=== PATIENT | female | born 1965 | race Caucasian/White ===

== ENCOUNTER 2016-09-30 10:52 | Emergency (ER) | payer OTHER ==
--- NOTE | 2016-09-30 11:37 | REP ---
Clinical: Trauma. Technique: AP, lateral, bilateral oblique and sunrise views right knee. Findings: The osseous structures and joint spaces are intact and normal. There is no evidence for acute fracture or dislocation. No joint effusion is appreciated. Surrounding soft tissues are unremarkable. No subcutaneous emphysema or radiodense foreign body. Impression: Normal examination. No acute fracture or dislocation. Signed by Duke Knox MD 09/30/2016 11:28 A
--- NOTE | 2016-09-30 11:56 | EDDOCDS ---
Nurse's Notes [facility] Name: Carol Bowman Age: 51 yrs Sex: Female : 1965 Arrival Date: 09/30/2016 Time: 10:52 Bed PR1 / Private MD: Kaci Herring Diagnosis: Pain in right knee Presentation: 09/30 10:59 Presenting complaint: Patient states: fell last night and injured right knee. Adult dsf Sepsis Screening: The patient does not have new or worsening altered mentation. Patient's respiratory rate is less than 22. Systolic blood pressure is greater than 100. Patient has a qSOFA score of 0- Negative Sepsis Screen. Suicide/Homicide risk assessment- the patient denies having any suicidal and/or homicidal ideations and does not present with any other emotional, behavioral or mental health complaints. 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 Transition of care: patient was not received from another setting of care. 10:59 Acuity: ELIANE Level 4 dsf 10:59 Method Of Arrival: Wheelchair dsf Triage Assessment: 11:01 General: Appears in no apparent distress, Behavior is appropriate for age, cooperative. dsf Pain: Location: right knee Pain currently is 5 out of 10 on a pain scale. Quality of pain is described as throbbing. HIV screening NA for this visit Offered previously. Musculoskeletal: Reports pain in right knee. 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 Multiple Vitamins oral tab 1 tab daily (Last dose: 09/29/2016) 2. oxycodone-acetaminophen 5-325 mg Oral tab 2 tabs as needed husbands medication (Last dose: 09/30/2016 04:30) - PMHx: Diverticulitis; chrons; - PSHx: ; Appendectomy; Hysterectomy; - Social history: Smoking status: Patient states was never smoker of tobacco. No barriers to communication noted, The patient speaks fluent Welsh, Speaks appropriately for age. - Family history: Not pertinent. - : The pt / caregiver states he / she is not on anticoagulants. Home medication list is obtained from the patient. - Exposure Risk Screening:: None identified. Screenin:54 Screening information is obtained from the patient. Fall risk: No risks identified. srm Assistance ADL's: requires no assistance with activities of daily living. Abuse/DV Screen: The patient / caregiver reports he/she is: not in a situation that causes fear, pain or injury. Nutritional screening: No deficits noted. Advance Directives: There is no active DNR order. home support is adequate. Assessment: 11:54 General: Appears in no apparent distress, Behavior is appropriate for age, cooperative. srm Respiratory: No deficits noted. Musculoskeletal: Circulation, motion, and sensation intact Reports RIGHT KNEE PAIN. Vital Signs: 10:55 BP 105 / 58; Pulse 82; Resp 16; Temp 96.5(T); Pulse Ox 100% on R/A; Weight 64.86 kg lr2 (R); Height 5 ft. 3 in. (160.02 cm) (R); Pain 5/10; 10:55 Body Mass Index 25.33 (64.86 kg, 160.02 cm) lr2 Vitals: 10:55 Log In Time: September 30, 2016 at 10:52. lr2 ED Course: 10:54 Patient visited by Kaci Yoon. lr2 10:54 Kaci Herring DO is Private Physician. lr2 10:54 Patient moved to Waiting lr2 10:58 Patient moved to Pre RCE lr2 10:59 Triage Initiated dsf 11:03 Patient moved to Triage 1 dsf 11:06 Ghassan Conn PA is PHCP. btw 11:06 Elana Marshall MD is Attending Physician. btw 11:06 Patient visited by Ghassan Conn PA. btw 11:14 Patient name changed from Carol\S\J\S\Colby\S\ to Carol\S\Wilbert\S\Colby. EDMS 11:15 [facility] Payment Agreement was scanned into [employer] and attached to record. lg 11:18 Patient moved to TR1 srm 11:41 Patient moved to PR1 / 25 kr3 11:44 Orthopaedics, [facility] is Referral Physician. btw 11:46 Knee, Complete Returned. EDMS 11:52 Crutch training done. Knee immobilizer applied on right knee. ct3 11:53 Patient visited by Lynn Palomares PCA. ct3 11:54 The patient / caregiver is instructed regarding the plan of care and ED course. srm Accompanied by Significant Other, Patient has correct armband on for positive identification. 11:54 No IV's were initiated during this patient's visit. No IV's were initiated during this srm patient's visit. No procedures done that require assistance. Crutch training done. Knee immobilizer applied on right knee. Patient with positive distal sensation and brisk distal capillary refill after application. Order Results: Radiology Order: Knee, Complete Test: Knee, Complete REASON FOR EXAMINATION: Trauma; Clinical: Trauma.; ; Technique: AP, lateral, bilateral oblique and sunrise views right knee.; ; Findings: The osseous structures and joint spaces are intact and normal. There; is no evidence for acute fracture or dislocation. No joint effusion is; appreciated. Surrounding soft tissues are unremarkable. No subcutaneous; emphysema or radiodense foreign body.; ; Impression:; Normal examination. No acute fracture or dislocation.; ; ; Signed by; Duke Knox MD 09/30/2016 11:28 A; Outcome: 11:44 Discharge ordered by Provider. btw 11:54 Discharge Assessment: Patient awake, alert and oriented x 3. No cognitive and/or srm functional deficits noted. Patient verbalized understanding of disposition instructions. patient administered narcotics - no. The following High Risk Discharge criteria are identified: None. Discharged to home with crutches, with significant other. Condition: stable. Discharge instructions given to patient, Instructed on discharge instructions, follow up and referral plans. medication usage, Rest, Ice, Compression and Elevation. crutch walking, Demonstrated understanding of instructions, crutch walking, Pt was receptive of discharge instructions/ teaching. No special radiology studies were completed. Property :Personal belongings accompany Pt. 11:55 Patient left the ED. [facility] Signatures: Dispatcher [employer] EDMS Racquel Saavedra, RN Flavia Dexter, Reg Reg lg Kristie Oneill,KOJO RN [email or web address] Ghassan Conn PA PA btw Lynn Palomares, LAURI PROGRAM TRAINER ct3 Alivia Mendez RN RN dsf Ross, Laura lr2 MTDD
--- NOTE | 2016-09-30 11:56 | EDDOCDS ---
Physician Documentation [facility] Name: Carol Bowman Age: 51 yrs Sex: Female : 1965 Arrival Date: 09/30/2016 Time: 10:52 Bed PR Private MD: Kaci Herring Disposition: 09/30/16 11:44 Discharged to Home/Self Care. Impression: Pain in right knee. - Condition is Stable. - Discharge Instructions: Knee Pain, Knee Sprain, [id number]. - Medication Reconciliation, Local Pharmacy Hours form. - Follow up: Orthopaedics, [facility]; When: Call to arrange an appointment; Reason: Further diagnostic work-up, Recheck today's complaints, Continuance of care. - Problem is new. - Symptoms are unchanged. Historical: - Allergies: no known allergies; - Home Meds: 1. Multiple Vitamins oral tab 1 tab daily (Last dose: 09/29/2016) 2. oxycodone-acetaminophen 5-325 mg Oral tab 2 tabs as needed husbands medication (Last dose: 09/30/2016 04:30) - PMHx: Diverticulitis; chrons; - PSHx: ; Appendectomy; Hysterectomy; - Social history: Smoking status: Patient states was never smoker of tobacco. No barriers to communication noted, The patient speaks fluent Lithuanian, Speaks appropriately for age. - Family history: Not pertinent. - : The pt / caregiver states he / she is not on anticoagulants. Home medication list is obtained from the patient. - Exposure Risk Screening:: None identified. 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 3 in. (160.02 cm) (R); Pain 5/10; 10:55 Body Mass Index 25.33 (64.86 kg, 160.02 cm) lr2 MDM: 11:11 Financial registration complete. lg 11:15 [facility] Payment Agreement was scanned into [employer] and attached to record. lg 11:17 Knee, Complete Ordered. EDMS 11:40 Knee Immobilizer ordered. btw 11:40 Crutches ordered. btw Signatures: Dispatcher [employer] Racquel Gibson, RN RN Flavia Ambrocio, Diego Reg lg Ghassan Conn PA PA btw Alivia Mendez RN RN dsf The chart was reviewed and I authenticate all verbal orders and agree with the evaluation and treatment provided.Attachments: 11:15 [facility] Payment Agreement lg MTDD
--- NOTE | 2016-10-02 12:56 | EDDOCDS ---
Physician Documentation [facility] Name: Carol Bowman Age: 51 yrs Sex: Female : 1965 Arrival Date: 09/30/2016 Time: 10:52 Bed PR Private MD: Kaci Herring Disposition: 09/30/16 11:44 Discharged to Home/Self Care. Impression: Pain in right knee. - Condition is Stable. - Discharge Instructions: Knee Pain, Knee Sprain, [id number]. - Medication Reconciliation, Local Pharmacy Hours form. - Follow up: Orthopaedics, [facility]; When: Call to arrange an appointment; Reason: Further diagnostic work-up, Recheck today's complaints, Continuance of care. - Problem is new. - Symptoms are unchanged. Historical: - Allergies: no known allergies; - Home Meds: 1. Multiple Vitamins oral tab 1 tab daily (Last dose: 09/29/2016) 2. oxycodone-acetaminophen 5-325 mg Oral tab 2 tabs as needed husbands medication (Last dose: 09/30/2016 04:30) - PMHx: Diverticulitis; chrons; - PSHx: ; Appendectomy; Hysterectomy; - Social history: Smoking status: Patient states was never smoker of tobacco. No barriers to communication noted, The patient speaks fluent Irish, Speaks appropriately for age. - Family history: Not pertinent. - : The pt / caregiver states he / she is not on anticoagulants. Home medication list is obtained from the patient. - Exposure Risk Screening:: None identified. 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 3 in. (160.02 cm) (R); Pain 5/10; 10:55 Body Mass Index 25.33 (64.86 kg, 160.02 cm) lr2 MDM: 11:11 Financial registration complete. lg 11:15 [facility] Payment Agreement was scanned into [employer] and attached to record. lg 11:17 Knee, Complete Ordered. EDMS 11:40 Knee Immobilizer ordered. btw 11:40 Crutches ordered. btw 14:39 T-Sheet-- Draft Copy was scanned into [employer] and attached to record. gb Signatures: Dispatcher [employer] Racquel Gibson, RN RN srm TorstenVeronica, Reg Reg gb Flavia Garcia, Reg Reg lg Ghassan Conn PA PA btw Alivia Mendez RN RN dsf The chart was reviewed and I authenticate all verbal orders and agree with the evaluation and treatment provided.Attachments: 11:15 [facility] Payment Agreement lg 14:39 T-Sheet-- Draft Copy gb Chart Complete MTDD
--- NOTE | 2016-10-02 12:56 | EDDOCDS ---
Nurse's Notes [facility] Name: Carol Bowman Age: 51 yrs Sex: Female : 1965 Arrival Date: 09/30/2016 Time: 10:52 Bed PR1 / Private MD: Kaci Herring Diagnosis: Pain in right knee Presentation: 09/30 10:59 Presenting complaint: Patient states: fell last night and injured right knee. Adult dsf Sepsis Screening: The patient does not have new or worsening altered mentation. Patient's respiratory rate is less than 22. Systolic blood pressure is greater than 100. Patient has a qSOFA score of 0- Negative Sepsis Screen. Suicide/Homicide risk assessment- the patient denies having any suicidal and/or homicidal ideations and does not present with any other emotional, behavioral or mental health complaints. 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 Transition of care: patient was not received from another setting of care. 10:59 Acuity: ELIANE Level 4 dsf 10:59 Method Of Arrival: Wheelchair dsf Triage Assessment: 11:01 General: Appears in no apparent distress, Behavior is appropriate for age, cooperative. dsf Pain: Location: right knee Pain currently is 5 out of 10 on a pain scale. Quality of pain is described as throbbing. HIV screening NA for this visit Offered previously. Musculoskeletal: Reports pain in right knee. 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 Multiple Vitamins oral tab 1 tab daily (Last dose: 09/29/2016) 2. oxycodone-acetaminophen 5-325 mg Oral tab 2 tabs as needed husbands medication (Last dose: 09/30/2016 04:30) - PMHx: Diverticulitis; chrons; - PSHx: ; Appendectomy; Hysterectomy; - Social history: Smoking status: Patient states was never smoker of tobacco. No barriers to communication noted, The patient speaks fluent Georgian, Speaks appropriately for age. - Family history: Not pertinent. - : The pt / caregiver states he / she is not on anticoagulants. Home medication list is obtained from the patient. - Exposure Risk Screening:: None identified. Screenin:54 Screening information is obtained from the patient. Fall risk: No risks identified. srm Assistance ADL's: requires no assistance with activities of daily living. Abuse/DV Screen: The patient / caregiver reports he/she is: not in a situation that causes fear, pain or injury. Nutritional screening: No deficits noted. Advance Directives: There is no active DNR order. home support is adequate. Assessment: 11:54 General: Appears in no apparent distress, Behavior is appropriate for age, cooperative. srm Respiratory: No deficits noted. Musculoskeletal: Circulation, motion, and sensation intact Reports RIGHT KNEE PAIN. Vital Signs: 10:55 BP 105 / 58; Pulse 82; Resp 16; Temp 96.5(T); Pulse Ox 100% on R/A; Weight 64.86 kg lr2 (R); Height 5 ft. 3 in. (160.02 cm) (R); Pain 5/10; 10:55 Body Mass Index 25.33 (64.86 kg, 160.02 cm) lr2 Vitals: 10:55 Log In Time: September 30, 2016 at 10:52. lr2 ED Course: 10:54 Patient visited by Kaci Yoon. lr2 10:54 Kaci Herring DO is Private Physician. lr2 10:54 Patient moved to Waiting lr2 10:58 Patient moved to Pre RCE lr2 10:59 Triage Initiated dsf 11:03 Patient moved to Triage 1 dsf 11:06 Ghassan Conn PA is PHCP. btw 11:06 Elana Marshall MD is Attending Physician. btw 11:06 Patient visited by Ghassan Conn PA. btw 11:14 Patient name changed from Carol\S\J\S\Colby\S\ to Carol\S\Wilbert\S\Colby. EDMS 11:15 [facility] Payment Agreement was scanned into [employer] and attached to record. lg 11:18 Patient moved to TR1 srm 11:41 Patient moved to PR1 / 25 kr3 11:44 Orthopaedics, [facility] is Referral Physician. btw 11:46 Knee, Complete Returned. EDMS 11:52 Crutch training done. Knee immobilizer applied on right knee. ct3 11:53 Patient visited by Lynn Palomares PCA. ct3 11:54 The patient / caregiver is instructed regarding the plan of care and ED course. srm Accompanied by Significant Other, Patient has correct armband on for positive identification. 11:54 No IV's were initiated during this patient's visit. No IV's were initiated during this srm patient's visit. No procedures done that require assistance. Crutch training done. Knee immobilizer applied on right knee. Patient with positive distal sensation and brisk distal capillary refill after application. 14:39 T-Sheet-- Draft Copy was scanned into [employer] and attached to record. Order Results: Radiology Order: Knee, Complete Test: Knee, Complete REASON FOR EXAMINATION: Trauma; Clinical: Trauma.; ; Technique: AP, lateral, bilateral oblique and sunrise views right knee.; ; Findings: The osseous structures and joint spaces are intact and normal. There; is no evidence for acute fracture or dislocation. No joint effusion is; appreciated. Surrounding soft tissues are unremarkable. No subcutaneous; emphysema or radiodense foreign body.; ; Impression:; Normal examination. No acute fracture or dislocation.; ; ; Signed by; Duke Knox MD 09/30/2016 11:28 A; Outcome: 11:44 Discharge ordered by Provider. btw 11:54 Discharge Assessment: Patient awake, alert and oriented x 3. No cognitive and/or srm functional deficits noted. Patient verbalized understanding of disposition instructions. patient administered narcotics - no. The following High Risk Discharge criteria are identified: None. Discharged to home with crutches, with significant other. Condition: stable. Discharge instructions given to patient, Instructed on discharge instructions, follow up and referral plans. medication usage, Rest, Ice, Compression and Elevation. crutch walking, Demonstrated understanding of instructions, crutch walking, Pt was receptive of discharge instructions/ teaching. No special radiology studies were completed. Property :Personal belongings accompany Pt. 11:55 Patient left the ED. [facility] Signatures: Dispatcher [employer] EDMS Racquel Saavedra, RN RN [facility] Veronica Sarmiento, Reg Reg gb Flavia Garcia, Reg Reg lg Kristie Oneill,RN RN kr3 Ghassan Conn PA PA btw Lynn Palomares, MILL RECORDER MILL RECORDER ct3 Alivia Mendez RN RN dsf Ross, Laura lr2 Chart Complete MTDD
--- NOTE | 2016-10-02 12:56 | EDDOCDS ---
Physician Documentation [facility] Name: Carol Bowman Age: 51 yrs Sex: Female : 1965 Arrival Date: 09/30/2016 Time: 10:52 Bed PR Private MD: Kaci Herring Disposition: 09/30/16 11:44 Discharged to Home/Self Care. Impression: Pain in right knee. - Condition is Stable. - Discharge Instructions: Knee Pain, Knee Sprain, [id number]. - Medication Reconciliation, Local Pharmacy Hours form. - Follow up: Orthopaedics, [facility]; When: Call to arrange an appointment; Reason: Further diagnostic work-up, Recheck today's complaints, Continuance of care. - Problem is new. - Symptoms are unchanged. Historical: - Allergies: no known allergies; - Home Meds: 1. Multiple Vitamins oral tab 1 tab daily (Last dose: 09/29/2016) 2. oxycodone-acetaminophen 5-325 mg Oral tab 2 tabs as needed husbands medication (Last dose: 09/30/2016 04:30) - PMHx: Diverticulitis; chrons; - PSHx: ; Appendectomy; Hysterectomy; - Social history: Smoking status: Patient states was never smoker of tobacco. No barriers to communication noted, The patient speaks fluent Welsh, Speaks appropriately for age. - Family history: Not pertinent. - : The pt / caregiver states he / she is not on anticoagulants. Home medication list is obtained from the patient. - Exposure Risk Screening:: None identified. 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 3 in. (160.02 cm) (R); Pain 5/10; 10:55 Body Mass Index 25.33 (64.86 kg, 160.02 cm) lr2 MDM: 11:11 Financial registration complete. lg 11:15 [facility] Payment Agreement was scanned into [employer] and attached to record. lg 11:17 Knee, Complete Ordered. EDMS 11:40 Knee Immobilizer ordered. btw 11:40 Crutches ordered. btw 14:39 T-Sheet-- Draft Copy was scanned into [employer] and attached to record. gb Signatures: Dispatcher [employer] Racquel Gibson, RN RN srm TorstenVeronica, Reg Reg gb Flavia Garcia, Reg Reg lg Ghassan Conn PA PA btw Alivia Mendez RN RN dsf The chart was reviewed and I authenticate all verbal orders and agree with the evaluation and treatment provided.Attachments: 11:15 [facility] Payment Agreement lg 14:39 T-Sheet-- Draft Copy gb Chart Complete MTDD
== END 2016-09-30 11:55 | disposition home or self-care (01) ==
LOC: M ED 10:52
DX: S83.411A Sprain of medial collateral ligament of right knee, initial encounter (principal); W01.0XXA Fall on same level from slipping, tripping and stumbling without subsequent striking against object, initial encounter; Y92.018 Other place in single-family (private) house as the place of occurrence of the external cause; Y93.89 Activity, other specified; Y99.8 Other external cause status; K50.90 Crohn's disease, unspecified, without complications; Z87.19 Personal history of other diseases of the digestive system

== ENCOUNTER 2018-03-25 12:04 | Outpatient (RCR) | payer OTHER | END 2018-04-12 | LOC: M PT 12:04 | DX: Z51.89 Encounter for other specified aftercare (principal); R42 Dizziness and giddiness | CPT/HCPCS: 97010 ==

== ENCOUNTER 2018-04-18 14:27 | Outpatient (RCR) | payer OTHER | END 2018-05-12 | LOC: M PT 14:27 | DX: R42 Dizziness and giddiness (principal) | CPT/HCPCS: 97110 ==

== ENCOUNTER → 2018-04-22 | Outpatient (REF) | payer OTHER ==
[2018-04-22 12:56] LABS: VITAMIN B12 LEVEL 712 PG/ML (247-911)
[2018-04-24 00:07] LABS: Lyme Disease IgG/IgM Antibodie <0.91 ISR (0.00-0.90); Lyme Disease IgM Ab Quantitati <0.80 index (0.00-0.79)
== END ==
LOC: M LAB REF 12:22
DX: K50.90 Crohn's disease, unspecified, without complications (principal); M25.50 Pain in unspecified joint; R26.81 Unsteadiness on feet

== ENCOUNTER → 2018-07-18 | Outpatient (REF) | payer OTHER ==
[2018-07-18 12:47] LABS: C REACTIVE PROTEIN QUANTITATIV < 0.30 MG/DL (0.00-0.30); CPK CREATINE PHOSPHOKINASE 280 U/L (26-192); MB/CK RELATIVE INDEX 0.43 (< OR =4); TROPONIN I < 0.02 NG/ML (< 0.10)
== END ==
LOC: M LAB REF 11:47
DX: R94.31 Abnormal electrocardiogram [ECG] [EKG] (principal)

== ENCOUNTER → 2019-01-17 | Outpatient (REF) | payer OTHER ==
[2019-01-23 14:10] LABS: ADH PANEL OSMOLALITY 282 mOsmol/kg (275-295); ALDOSTERONE 5.2 ng/dL (0.0-30.0); ANTI-DIURETIC HORMONE <0.8 pg/mL (0.0-4.7)
== END ==
LOC: M LAB REF 12:52
PROVIDERS: ATTEND Internal Medicine
DX: I95.1 Orthostatic hypotension (principal)

== ENCOUNTER → 2020-07-22 | Outpatient (CLI) | payer SELFPAY | LOC: M LABSMTC 11:47 | PROVIDERS: ATTEND Pediatrics | DX: Z20.828 Contact with and (suspected) exposure to other viral communicable diseases (principal) ==

== ENCOUNTER → 2020-12-13 | Outpatient (CLI) | payer SELFPAY | LOC: M LABSMTC 10:00 | PROVIDERS: ATTEND Pediatrics | DX: Z20.822 Contact with and (suspected) exposure to COVID-19 (principal) ==

== ENCOUNTER → 2020-12-17 | Outpatient (CLI) | payer SELFPAY | LOC: M LABSMTC 10:19 | PROVIDERS: ATTEND Pediatrics | DX: Z11.52 Encounter for screening for COVID-19 (principal) ==

== ENCOUNTER → 2020-12-21 | Outpatient (CLI) | payer OTHER ==
[2020-12-21 09:11] LABS: HEMATOCRIT 46.1 % (36.0-47.0); HEMOGLOBIN 15.2 g/dl (12.0-15.5); MEAN CORPUSCULAR HEMOGLOBIN 29.2 pg (27.0-33.0); MEAN CORPUSCULAR VOLUME 88.7 fl (80.0-96.0); PLATELET COUNT, AUTOMATED 175 10^3/uL (150-450)
[2020-12-21 09:32] LABS: ERYTHROCYTE SEDIMENTATION RATE 27 mm/hr (0-30)
[2020-12-21 09:36] LABS: ALBUMIN 3.8 GM/DL (3.2-5.2); ALT/SGPT 23 U/L (12-78); BILIRUBIN,TOTAL 0.3 MG/DL (0.2-1.0); BLOOD UREA NITROGEN 10 MG/DL (7-18); C REACTIVE PROTEIN QUANTITATIV 1.19 MG/DL (0.00-0.30); CALCIUM LEVEL 8.7 MG/DL (8.5-10.1); CARBON DIOXIDE LEVEL 28 MEQ/L (21-32); CHLORIDE LEVEL 106 MEQ/L (98-107); CREATININE FOR GFR 0.74 MG/DL (0.55-1.30); GLOMERULAR FILTRATION RATE > 60.0 (>51); GLUCOSE, FASTING 89 MG/DL (70-100); POTASSIUM SERUM 4.3 MEQ/L (3.5-5.1); SODIUM LEVEL 140 MEQ/L (136-145); TOTAL PROTEIN 6.9 GM/DL (6.4-8.2)
== END ==
LOC: M LAB 08:24
PROVIDERS: ATTEND Internal Medicine Gastroenterology
DX: K50.90 Crohn's disease, unspecified, without complications (principal); R19.7 Diarrhea, unspecified; R10.32 Left lower quadrant pain

== ENCOUNTER → 2021-01-03 | Outpatient (CLI) | payer OTHER ==
[~2021-01-03] MED LIST: GLUCAGON INJ 1MG VIAL As Ordered ONE; ISOVUE-370 76% 100ML VIAL As Ordered ONE; VoLumen 0.1% SUSPENSION 450ML BOTTLE As Ordered ONE
--- NOTE | 2021-01-03 11:26 | REPVR ---
PROCEDURE INFORMATION: Exam: CT Abdomen And Pelvis Without And With Contrast Exam date and time: 01/03/2021 10:23 AM Age: 55 years old Clinical indication: Condition or disease; Other: Crohn's TECHNIQUE: Imaging protocol: Computed tomography of the abdomen and pelvis without and with contrast. 3D rendering (Not supervised by radiologist): MIP and/or 3D reconstructed images were created by the technologist. Radiation optimization: All CT scans at this facility use at least one of these dose optimization techniques: automated exposure control; mA and/or kV adjustment per patient size (includes targeted exams where dose is matched to clinical indication); or iterative reconstruction. Contrast material: ISOVUE 370; Contrast volume: 100 ml; Contrast route: INTRAVENOUS (IV); Other contrast: Oral, VOLUMEN, 450ML x 3; COMPARISON: No relevant prior studies available. FINDINGS: Lungs: Increased interstitial markings with small ground-glass airspace opacities in the visualized lungs may represent COVID-19 infection versus edema or multifocal pneumonia, clinical correlation is recommended. Liver: Liver is enlarged small area of focal fatty infiltration at the falciform ligament within the liver. Gallbladder and bile ducts: Normal. No calcified stones. No ductal dilation. Pancreas: Normal. No ductal dilation. Spleen: Normal. No splenomegaly. Adrenal glands: Normal. No mass. Kidneys and ureters: Normal. No hydronephrosis. Stomach and bowel: No small bowel dilatation or obstruction. Fluid in the colon and small bowel loops without any dilatation or surrounding inflammation, nonspecific, mild enterocolitis should be ruled out clinically. Appendix: Appendix is not definitely seen. No secondary signs to suggest acute appendicitis. Intraperitoneal space: Unremarkable. No free air. No significant fluid collection. Vasculature: Unremarkable. No abdominal aortic aneurysm. Lymph nodes: Multiple subcentimeter retroperitoneal and mesenteric root lymph nodes, these are not pathologically enlarged by CT criteria. Urinary bladder: Unremarkable as visualized. Reproductive: Status post hysterectomy. Bones/joints: Mild levoscoliosis of the distal lumbar spine and dextroscoliosis of the thoracolumbar spine. Soft tissues: Unremarkable. IMPRESSION: Increased interstitial markings with small ground-glass airspace opacities in the visualized lungs may represent COVID-19 infection versus edema or multifocal pneumonia, clinical correlation is recommended. No small bowel dilatation or obstruction. Fluid in the colon and small bowel loops without any dilatation or surrounding inflammation, nonspecific, mild enterocolitis should be ruled out clinically. Electronically signed by: Letha Torres On 01/03/2021 11:25:44 AM
== END ==
LOC: M RAD 08:57
PROVIDERS: ATTEND Internal Medicine Gastroenterology
DX: K50.90 Crohn's disease, unspecified, without complications (principal); K76.0 Fatty (change of) liver, not elsewhere classified; R91.8 Other nonspecific abnormal finding of lung field
CPT/HCPCS: 74177; J1610; Q9967

== ENCOUNTER → 2021-01-13 | Outpatient (REF) | payer OTHER | LOC: M LAB REF 17:31 | PROVIDERS: ATTEND Internal Medicine | DX: R79.82 Elevated C-reactive protein (CRP) (principal) ==

== ENCOUNTER → 2021-01-18 | Outpatient (CLI) | payer OTHER ==
[~2021-01-18] MED LIST changes: -GLUCAGON INJ 1MG VIAL As Ordered ONE; -VoLumen 0.1% SUSPENSION 450ML BOTTLE As Ordered ONE
--- NOTE | 2021-01-19 04:28 | REP ---
INDICATION: GROUND GLASS OPACITYS COMPARISON: No prior chest CT for comparison. TECHNIQUE: Axial contrast enhanced images from the thoracic inlet to the upper abdomen with coronal and sagittal reformations using 75 ml Isovue 370 intravenous contrast material. This CT examination was performed using the following dose reduction techniques: Automated exposure control, adjustment of mA and/or kv according to the patient's size, and use of iterative reconstruction technique. FINDINGS: Lung fitzpatrick demonstrate mild chronic emphysematous changes with associated mild bronchiectasis as well as scattered elements of linear scarring and fibroatelectatic changes. There is a small focal area of possible chronic rounded atelectasis along the posterior aspect of the left lower lobe (series 201; images 38-58). Small scattered nonspecific patchy ground-glass opacities are identified and may also represent chronic changes. The above mentioned findings should be correlated with patient's physical examination and history including history of nicotine dependence. Findings are nonspecific. No significant discrete focal consolidation, obvious nodule or mass lesion otherwise appreciated. No pleural effusion. No pneumothorax. Tracheobronchial tree is patent. Nonspecific mediastinal and hilar lymph nodes measure up to approximately 9 mm short axis diameter. Thoracic aorta, pulmonary vasculature, and heart/pericardium appear normal. Surrounding musculoskeletal structures are intact. IMPRESSION: 1. Relatively nonspecific chronic appearing changes as described above require clinical/historical correlation. In the absence of prior examinations or significant clinical information, re-evaluation in 6-9 months may be warranted to confirm stability. 2. No acute consolidation, effusion, or pneumothorax. <Electronically signed by Duke Knox > 01/19/21 0424
== END ==
LOC: M RAD 09:06
PROVIDERS: ATTEND Internal Medicine
DX: R91.8 Other nonspecific abnormal finding of lung field (principal); J43.9 Emphysema, unspecified; J98.4 Other disorders of lung; Z87.891 Personal history of nicotine dependence

== ENCOUNTER → 2021-05-13 | Outpatient (CLI) | payer OTHER ==
--- NOTE | 2021-05-13 08:18 | REP ---
INDICATION: ABN FINDING OF LUNG COMPARISON: 01/28/2021 TECHNIQUE: Axial noncontrast images from the thoracic inlet to the upper abdomen with coronal and sagittal reformations. This CT examination was performed using the following dose reduction techniques: Automated exposure control, adjustment of mA and/or kv according to the patient's size, and use of iterative reconstruction technique. FINDINGS: The subtle scattered ground-glass opacities and increased linear markings on the prior examination have essentially completely resolved suggesting a prior acute inflammatory process. The current examination demonstrates well aerated bilateral lung fitzpatrick with very minimal bibasilar linear scarring. There is a 5 mm noncalcified nodule in the perifissural middle lobe inseparable from the minor fissure (sagittal image 38) which remains stable. No acute consolidation or pleural effusion. No pneumothorax. No evidence for axillary, hilar, or mediastinal adenopathy. Thoracic aorta, pulmonary vasculature, and heart/pericardium are normal. Surrounding musculoskeletal structures are intact and without acute osseous abnormality. Normal bilateral adrenal glands. IMPRESSION: 1. Minimal chronic bibasilar linear scarring. 2. Previously noted ground-glass opacities have resolved. 3. A 5 mm noncalcified nodule in the right middle lobe is unchanged. Consider 12 month follow-up examination to confirm stability. <Electronically signed by Duke Knox > 05/13/21 0810
== END ==
LOC: M RAD 07:57
PROVIDERS: ATTEND Internal Medicine Pulmonary Disease
DX: R91.1 Solitary pulmonary nodule (principal); J98.4 Other disorders of lung

== ENCOUNTER → 2021-06-29 | Outpatient (CLI) | payer OTHER ==
--- NOTE | 2021-06-30 13:02 | REPMRS ---
Patient History The patient states she had a clinical breast exam in May 2021. Patient has history of other cancer at age 55. Family history of colorectal cancer at age 50 in brother. Patient states no breast complaints today. Patient has signed MRS History Sheet. Digital Woman Screen Mammo: June 29, 2021 - Exam #: [id number] Bilateral CC and MLO view(s) were taken. Technologist: Salud Garcia, Technologist Prior study comparison: April 25, 2021, left breast diagnostic unilateral mammo, performed at [facility]. May 21, 2020, bilateral digital mammo screening bilat, performed at [facility]. May 06, 2019, bilateral digital mammo screening bilat, performed at [facility]. May 25, 2017, bilateral digital mammo screening bilat, performed at [facility]. FINDINGS: The breast tissue is heterogeneously dense. This may lower the sensitivity of mammography. Screening. Digital screening (2D) mammography was performed bilaterally in the CC and MLO projections. Additionally, breast tomosynthesis (3D mammography) was performed bilaterally in the CC and MLO projections. Todays exam was compared to the prior exam/exams. By history, the patient has no complaints of a palpable breast abnormality or other significant breast complaints. The Volpara volumetric breast density category is C, the breasts are heterogenously dense which may obscure small masses. The breasts are unchanged in size and shape. There are no carlee-soft tissue densities or spiculated masses. There is no internal architectural distortion. There are no suspicious carlee-calcific clusters. Skin thickening or nipple retraction is not present. IMPRESSION: BI-RADS Category 2- Benign Findings. There is no evidence of malignant alteration of the breasts. Followup examination recommended in one year. The lifetime Tyrer-Cuzick score is 7.0% This mammogram was read with the assistance of Hubs1,an FDA approved computer aided detection system for mammography. Due to the density of the breasts, MRI/whole breast screening ultrasound is warranted. Negative x-ray reports should not delay surgical consultation if a dominant or clinically suspicious mass is present. Not all breast cancers can be identified by mammography. Therefore, we recommend that you continue to perform regular breast self-examination and physical examination and then promptly contact your physician of any concerns or changes. Adenosis and dense breasts may obscure an underlying neoplasm. No significant changes when compared with prior studies. Assessment: BI-RADS/ACR category 2 mammogram. Benign Findings. Recommendation Routine screening mammogram of both breasts in 1 year. Electronically Signed By: Hans Daniels MD 06/30/21 [id number]
--- NOTE | 2021-07-10 21:25 | DEXAMM ---
INDICATION: SCREENING MAMMO/ BONE DENSITY. COMPARISON: None. TECHNIQUE: Bone density was measured using dual-energy x-ray absorptionmetry (DEXA). FINDINGS: AP SPINE L1-L4 BMD 1.43 g/cm2 Young Adult T-Score 1.9 Age Matched Z-Score 2.7. LT FEMUR, TOTAL BMD 0.98 g/cm2 Young Adult T-Score -0.2 Age Matched Z-Score 0.5. LT NECK BMD 0.98 g/cm2 Young Adult T-Score -0.4 Age Matched Z-Score 0.6. RT FEMUR, TOTAL BMD 0.91 g/cm2 Young Adult T-Score -0.8 Age Matched Z-Score -0.1. RT NECK BMD 0.89 g/cm2 Young Adult T-Score -1.0 Age Matched Z-Score 0.0. IMPRESSION: There is normal bone density of the spine. There is normal bone density of the left hip. There is normal bone density of the right hip. The density of the spine has increased 6.6% since the initial exam on 05/06/2019. The density of the left hip has increased 2% since initial exam on 05/06/2019. The density of the right hip has increased 2% since the initial exam on 05/06/2019. FOLLOW-UP: Recommendation for the next bone density exam: 2 years. <Electronically signed by Duke Knox > 07/10/21 [id number]
== END ==
LOC: M WHC 15:22
PROVIDERS: ATTEND Obstetrics & Gynecology
DX: Z12.31 Encounter for screening mammogram for malignant neoplasm of breast (principal); Z13.820 Encounter for screening for osteoporosis; Z85.9 Personal history of malignant neoplasm, unspecified; R92.2 Inconclusive mammogram; M85.89 Other specified disorders of bone density and structure, multiple sites

== ENCOUNTER → 2021-10-25 | Outpatient (REF) | payer OTHER ==
[~2021-10-25] MED LIST changes: +CIPR-249 PO; -ISOVUE-370 76% 100ML VIAL As Ordered ONE; +MESA1.2T; +METR-265 PO; +OMEP-173; +ONDA4TAB6 PO; +PERC5TAB12 PO; +TRAZ-252
[2021-10-26 12:50] LABS: C REACTIVE PROTEIN QUANTITATIV < 0.30 MG/DL (0.00-0.30); FERRITIN 37 NG/ML (8-252); IRON (FE) 54 UG/DL (50-170); PERCENT SATURATION 16.9 % (13.2-45.0); TOTAL IRON BINDING CAPACITY 319 UG/DL (250-450)
[2021-10-26 12:58] LABS: VITAMIN B12 LEVEL 599 PG/ML (247-911)
== END ==
LOC: M LAB REF 12:07
PROVIDERS: ATTEND Internal Medicine
DX: R53.83 Other fatigue (principal)

== ENCOUNTER 2021-10-27 07:38 | Emergency (ER) | payer OTHER ==
[~2021-10-27] VITALS: Ht 160 cm; Wt 67.3 kg
[2021-10-27 07:38] VITALS: BP 118/63
[2021-10-27] MEDS ORDERED: TRAZ-252 (07:48)
[2021-10-27] MEDS ORDERED: OMEP-173 (07:48)
[2021-10-27] MEDS ORDERED: MESA1.2T (07:48)
[2021-10-27] MEDS ORDERED: NS 500 ML IV ONE (08:40)
[2021-10-27] MEDS ORDERED: ONDANSETRON 4MG/2ML VIAL IV ONE (08:40)
[2021-10-27] MEDS: MORPHINE 4 MG/ML 1ML VIAL/SYRINGE (J2270) IV PRN ×2 (09:15→10:02)
[2021-10-27 09:16] LABS: BASO % 0.5 % (0.0-1.0); EOS % 0.3 % (0.0-3.0); HEMATOCRIT 40.2 % (36.0-47.0); LYMPH # 0.8 10^3/uL (1.5-5.0); LYMPH % 9.7 % (24.0-44.0); MEAN CORPUSCULAR HEMOGLOBIN 30.4 pg (27.0-33.0); MEAN CORPUSCULAR HGB CONC 34.8 g/dl (32.0-36.5); MEAN CORPUSCULAR VOLUME 87.4 fl (80.0-96.0); MONO # 0.5 10^3/uL (0.0-0.8); MONO % 5.9 % (2.0-8.0); NEUTROPHILS # 7.2 10^3/uL (1.5-8.5); NEUTROPHILS % 83.3 % (36.0-66.0); PLATELET COUNT, AUTOMATED 215 10^3/uL (150-450); WHITE BLOOD COUNT 8.7 10^3/uL (4.0-10.0)
[2021-10-27] MEDS: GASTROGRAFIN SOLUTION 30ML PO SCH ×2 (09:37→10:09)
[2021-10-27] MEDS ORDERED: ISOVUE-370 76% 100ML VIAL As Ordered ONE (09:42)
[2021-10-27 09:43] LABS: ALBUMIN 3.8 GM/DL (3.2-5.2); BILIRUBIN,DIRECT 0.2 MG/DL (0.0-0.2); BILIRUBIN,TOTAL 0.7 MG/DL (0.2-1.0); TOTAL PROTEIN 6.7 GM/DL (6.4-8.2)
[2021-10-27 10:08] LABS: RSV AMPLIFICATION NEGATIVE (NEGATIVE)
[2021-10-27] MEDS ORDERED: CIPROFLOXACIN 500MG TABLET PO ONE (11:50)
[2021-10-27] MEDS ORDERED: PERCOCET 5MG/325MG TAB PO ONE (11:50)
[2021-10-27] MEDS ORDERED: metroNIDAZOLE (FLAGYL) 500MG TABLET PO ONE (11:50)
[2021-10-27] MEDS ORDERED: CIPR-249 PO (11:58)
[2021-10-27] MEDS ORDERED: METR-265 PO (11:59)
[2021-10-27] MEDS ORDERED: ONDA4TAB6 PO (11:59)
[2021-10-27] MEDS ORDERED: PERC5TAB12 PO (12:00)
== END 2021-10-27 12:31 | disposition home or self-care (01) ==
LOC: M ED 07:38
DX: K57.32 Diverticulitis of large intestine without perforation or abscess without bleeding (principal); K50.919 Crohn's disease, unspecified, with unspecified complications; K22.70 Barrett's esophagus without dysplasia; Z87.891 Personal history of nicotine dependence
CPT/HCPCS: 74177; 80047; 80076; 81001; 82150; 83605; 83690; 85025; 87040; 87077; 87186; 87631; 93041; 96361; 96374; 96375; 96376; 99284; J2270; J2405; Q9963; Q9967

== ENCOUNTER → 2022-03-02 | Outpatient (CLI) | payer OTHER | LOC: M RAD 14:02 | PROVIDERS: ATTEND Internal Medicine | DX: R42 Dizziness and giddiness (principal) ==

== ENCOUNTER → 2022-05-15 | Outpatient (CLI) | payer OTHER | LOC: M RAD 14:42 | PROVIDERS: ATTEND Internal Medicine Pulmonary Disease | DX: R91.8 Other nonspecific abnormal finding of lung field (principal); J84.9 Interstitial pulmonary disease, unspecified ==

== ENCOUNTER → 2022-06-08 | Outpatient (CLI) | payer OTHER ==
[~2022-06-08] MED LIST changes: +METHACHOLINE KIT (J7674) INH ONE
== END ==
LOC: M CARPUL 14:32
PROVIDERS: ATTEND Internal Medicine Pulmonary Disease
DX: R91.1 Solitary pulmonary nodule (principal)
CPT/HCPCS: 94070; J7674

== ENCOUNTER → 2022-06-19 | Outpatient (REF) | payer OTHER ==
[~2022-06-19] MED LIST changes: -METHACHOLINE KIT (J7674) INH ONE
[2022-06-19 17:55] LABS: C REACTIVE PROTEIN QUANTITATIV < 0.30 MG/DL (0.00-0.30); RHEUMATOID FACTOR QUANT < 10.0 IU/ML (<15.0)
== END ==
LOC: M LAB REF 16:01
PROVIDERS: ATTEND Internal Medicine
DX: M25.50 Pain in unspecified joint (principal)

== ENCOUNTER → 2022-07-13 | Outpatient (CLI) | payer OTHER ==
[2022-07-13 17:59] LABS: MAGNESIUM LEVEL 1.8 MG/DL (1.8-2.4)
[2022-07-13 18:02] LABS: TOTAL 25(OH) VITAMIN D 41.2 NG/ML (20.0-100.0)
== END ==
LOC: M LAB 15:29
PROVIDERS: ATTEND Internal Medicine Gastroenterology
DX: K21.9 Gastro-esophageal reflux disease without esophagitis (principal); K62.89 Other specified diseases of anus and rectum; K50.90 Crohn's disease, unspecified, without complications; K62.5 Hemorrhage of anus and rectum; R49.0 Dysphonia; E55.9 Vitamin D deficiency, unspecified

== ENCOUNTER → 2022-07-14 | Outpatient (REF) | payer OTHER | LOC: M LAB REF 08:32 | PROVIDERS: ATTEND Internal Medicine Gastroenterology | DX: K21.9 Gastro-esophageal reflux disease without esophagitis (principal); K50.90 Crohn's disease, unspecified, without complications; K62.5 Hemorrhage of anus and rectum; E55.9 Vitamin D deficiency, unspecified ==

== ENCOUNTER 2022-08-02 09:52 | Emergency (ER) | payer OTHER ==
[~2022-08-02] VITALS: Ht 160 cm; Wt 65.5 kg
[2022-08-02 09:53] VITALS: BP 125/60
== END 2022-08-02 12:52 | disposition left against medical advice (07) ==
LOC: M ED 09:52
DX: Z53.21 Procedure and treatment not carried out due to patient leaving prior to being seen by health care provider (principal)

== ENCOUNTER 2022-08-02 13:15 | Emergency (ER) | payer OTHER ==
[~2022-08-02] VITALS: Ht 160 cm; Wt 65.5 kg
[2022-08-02 13:16] VITALS: BP 121/56
== END 2022-08-02 13:35 | disposition left against medical advice (07) ==
LOC: M ED 13:15
DX: Z53.21 Procedure and treatment not carried out due to patient leaving prior to being seen by health care provider (principal)

== ENCOUNTER → 2022-08-02 | Outpatient (CLI) | payer OTHER | LOC: M RAD 12:20 | PROVIDERS: ATTEND Internal Medicine Pulmonary Disease | DX: R05.3 Chronic cough (principal); J45.40 Moderate persistent asthma, uncomplicated; J47.9 Bronchiectasis, uncomplicated ==

== ENCOUNTER → 2022-10-13 | Outpatient (CLI) | payer OTHER | LOC: M WHC 13:31 | PROVIDERS: ATTEND Obstetrics & Gynecology | DX: Z12.31 Encounter for screening mammogram for malignant neoplasm of breast (principal) ==

== ENCOUNTER → 2022-10-31 | Outpatient (CLI) | payer OTHER | LOC: M WHC 13:56 | PROVIDERS: ATTEND Obstetrics & Gynecology | DX: R92.2 Inconclusive mammogram (principal) | CPT/HCPCS: 77065; G0279 ==

== ENCOUNTER → 2023-01-23 | Outpatient (CLI) | payer OTHER ==
[2023-01-23 15:56] LABS: HEMATOCRIT 38.1 % (36.0-47.0); HEMOGLOBIN 12.5 g/dl (12.0-15.5); MEAN CORPUSCULAR HEMOGLOBIN 29.7 pg (27.0-33.0); MEAN CORPUSCULAR HGB CONC 32.8 g/dl (32.0-36.5); MEAN CORPUSCULAR VOLUME 90.5 fl (80.0-96.0); PLATELET COUNT, AUTOMATED 281 10^3/uL (150-450); RED BLOOD COUNT 4.21 10^6/uL (4.00-5.40); WHITE BLOOD COUNT 6.1 10^3/uL (4.0-10.0)
[2023-01-23 16:15] LABS: C REACTIVE PROTEIN QUANTITATIV < 0.40 MG/DL (<1.0)
[2023-01-23 16:17] LABS: ALBUMIN 3.6 G/DL (3.2-5.2); ALKALINE PHOSPHATASE 59 U/L (46-116); ALT/SGPT 20 U/L (7.0-40); AST/SGOT 11 U/L (<34); BILIRUBIN,TOTAL 0.4 MG/DL (0.3-1.2); BLOOD UREA NITROGEN 11 MG/DL (9-23); CALCIUM LEVEL 8.2 MG/DL (8.5-10.1); CARBON DIOXIDE LEVEL 28 MMOL/L (20-31); CHLORIDE LEVEL 105 MMOL/L (98-107); CREATININE FOR GFR 0.73 MG/DL (0.55-1.30); GLOMERULAR FILTRATION RATE > 60.0 (>51); GLUCOSE, FASTING 88 MG/DL (60-100); POTASSIUM SERUM 3.9 MMOL/L (3.5-5.1); SODIUM LEVEL 140 MMOL/L (136-145); TOTAL PROTEIN 6.2 G/DL (5.7-8.2)
[2023-01-23 17:17] LABS: ERYTHROCYTE SEDIMENTATION RATE 18 mm/hr (0-30)
== END ==
LOC: M PLALAB 13:35
PROVIDERS: ATTEND Internal Medicine Gastroenterology
DX: K52.9 Noninfective gastroenteritis and colitis, unspecified (principal); K62.5 Hemorrhage of anus and rectum; K50.90 Crohn's disease, unspecified, without complications

== ENCOUNTER → 2023-07-10 | Outpatient (CLI) | payer OTHER | LOC: M WHC 14:32 | PROVIDERS: ATTEND Obstetrics & Gynecology | DX: Z13.820 Encounter for screening for osteoporosis (principal); M85.89 Other specified disorders of bone density and structure, multiple sites ==

== ENCOUNTER → 2023-09-11 | Outpatient (CLI) | payer OTHER ==
[~2023-09-11] MED LIST changes: +NORCO, ANEXSIA 5/325MG TABLET (HYDROcodone/ACETAMINOPHEN) As Ordered ONE; +diazePAM 5MG TABLET As Ordered ONE
== END ==
LOC: M PAIN 10:00
PROVIDERS: ATTEND Anesthesiology
DX: M79.18 Myalgia, other site (principal); K50.90 Crohn's disease, unspecified, without complications; K22.70 Barrett's esophagus without dysplasia; Z79.899 Other long term (current) drug therapy; Z87.891 Personal history of nicotine dependence
CPT/HCPCS: 20552; J0665

== ENCOUNTER → 2023-10-15 | Outpatient (CLI) | payer OTHER ==
[~2023-10-15] MED LIST changes: -NORCO, ANEXSIA 5/325MG TABLET (HYDROcodone/ACETAMINOPHEN) As Ordered ONE; -diazePAM 5MG TABLET As Ordered ONE
== END ==
LOC: M PAIN 11:00
PROVIDERS: ATTEND Nurse Practitioner Family
DX: M79.10 Myalgia, unspecified site (principal); G89.29 Other chronic pain; Z79.899 Other long term (current) drug therapy; Z87.891 Personal history of nicotine dependence

== ENCOUNTER → 2023-11-02 | Outpatient (CLI) | payer OTHER | LOC: M SOG 15:00 | PROVIDERS: ATTEND Physician Assistant | DX: M25.511 Pain in right shoulder (principal); M25.531 Pain in right wrist ==

== ENCOUNTER → 2023-11-06 | Outpatient (CLI) | payer OTHER ==
[~2023-11-06] MED LIST changes: +NORCO, ANEXSIA 5/325MG TABLET (HYDROcodone/ACETAMINOPHEN) As Ordered ONE; +TRIAMCINOLONE ACETONIDE SUSP 40MG/ML 1ML VIAL As Ordered ONE; +diazePAM 5MG TABLET As Ordered ONE
== END ==
LOC: M PAIN 14:00
PROVIDERS: ATTEND Anesthesiology
DX: M79.12 Myalgia of auxiliary muscles, head and neck (principal); M79.18 Myalgia, other site; K22.70 Barrett's esophagus without dysplasia; K50.90 Crohn's disease, unspecified, without complications; Z79.899 Other long term (current) drug therapy; Z87.891 Personal history of nicotine dependence
CPT/HCPCS: 20553; J0665; J3301

== ENCOUNTER → 2023-11-06 | Outpatient (CLI) | payer OTHER ==
[~2023-11-06] MED LIST changes: -NORCO, ANEXSIA 5/325MG TABLET (HYDROcodone/ACETAMINOPHEN) As Ordered ONE; -TRIAMCINOLONE ACETONIDE SUSP 40MG/ML 1ML VIAL As Ordered ONE; -diazePAM 5MG TABLET As Ordered ONE
== END ==
LOC: EDSTATUS 07:30 → M WHC 08:10
PROVIDERS: ATTEND Obstetrics & Gynecology
DX: Z12.31 Encounter for screening mammogram for malignant neoplasm of breast (principal); R92.333 Mammographic heterogeneous density, bilateral breasts; N64.89 Other specified disorders of breast
CPT/HCPCS: 77066; G0279

== ENCOUNTER → 2023-12-18 | Outpatient (CLI) | payer OTHER | LOC: M PAIN 17:00 | PROVIDERS: ATTEND Nurse Practitioner Family | DX: M79.10 Myalgia, unspecified site (principal); Z87.891 Personal history of nicotine dependence; Z79.890 Hormone replacement therapy; Z79.899 Other long term (current) drug therapy ==

== ENCOUNTER → 2024-01-24 | Outpatient (CLI) | payer OTHER ==
[~2024-01-24] MED LIST changes: +ONDA-282 PO; -ONDA4TAB6 PO
== END ==
LOC: M RAD 14:45
PROVIDERS: ATTEND Nurse Practitioner Family
DX: R05.9 Cough, unspecified (principal)

== ENCOUNTER → 2024-11-12 | Outpatient (CLI) | payer OTHER | LOC: M WHC 08:17 | PROVIDERS: ATTEND Obstetrics & Gynecology | DX: Z12.31 Encounter for screening mammogram for malignant neoplasm of breast (principal) | CPT/HCPCS: 77066; G0279 ==

== ENCOUNTER → 2025-03-04 | Outpatient (REF) | payer OTHER | LOC: M LAB REF 10:00 | PROVIDERS: ATTEND Internal Medicine Gastroenterology | DX: K52.9 Noninfective gastroenteritis and colitis, unspecified (principal); K50.90 Crohn's disease, unspecified, without complications; K21.9 Gastro-esophageal reflux disease without esophagitis; K22.2 Esophageal obstruction; K44.9 Diaphragmatic hernia without obstruction or gangrene; K63.89 Other specified diseases of intestine; K63.5 Polyp of colon; K64.0 First degree hemorrhoids; K57.30 Diverticulosis of large intestine without perforation or abscess without bleeding; K62.89 Other specified diseases of anus and rectum ==

== ENCOUNTER → 2025-03-24 | Outpatient (CLI) | payer OTHER ==
[~2025-03-24] MED LIST changes: +GASTROGRAFIN SOLUTION 30 ML ONE; +ISOVUE-370 76% 100 ML VIAL ONE
== END ==
LOC: M PLAIMG 13:28
PROVIDERS: ATTEND Internal Medicine
DX: R10.814 Left lower quadrant abdominal tenderness (principal); R10.813 Right lower quadrant abdominal tenderness; D18.03 Hemangioma of intra-abdominal structures; N28.1 Cyst of kidney, acquired
CPT/HCPCS: 74177; Q9963; Q9967

== ENCOUNTER → 2025-05-15 | Outpatient (REF) | payer OTHER ==
[~2025-05-15] MED LIST changes: -GASTROGRAFIN SOLUTION 30 ML ONE; -ISOVUE-370 76% 100 ML VIAL ONE
== END ==
LOC: M LAB REF 12:31
PROVIDERS: ATTEND Internal Medicine
DX: R05.1 Acute cough (principal)

== ENCOUNTER → 2025-07-13 | Outpatient (CLI) | payer OTHER | LOC: M WHC 07:51 | PROVIDERS: ATTEND Obstetrics & Gynecology | DX: Z13.820 Encounter for screening for osteoporosis (principal) ==